=== PATIENT | male | born 1990 | race African-American/Black ===

== ENCOUNTER 2018-10-07 14:59 | Emergency (ER) | payer MEDICAID ==
[~2018-10-07] VITALS: Ht 195.6 cm; Wt 95.0 kg
[2018-10-07 15:29] VITALS: BP 122/67
== END 2018-10-07 16:17 | disposition home or self-care (01) ==
LOC: ER 14:59
DX: Z48.02 Encounter for removal of sutures (principal)
CPT/HCPCS: 99281

== ENCOUNTER 2018-10-15 09:12 | Emergency (ER) | payer MEDICAID ==
[~2018-10-15] VITALS: Ht 195.6 cm; Wt 98.0 kg
[2018-10-15] MEDS ORDERED: ONDANSETRON HCL 4MG/2ML INJ IV STA (10:22)
[2018-10-15] MEDS ORDERED: SODIUM CHLORIDE 0.9% 1,000 ML IV ONE (10:22)
[2018-10-15 11:05] LABS: BASOPHILS % 0.3 % (0.0-2.0); EOSINOPHILS % 0.3 % (0.0-5.0); HEMATOCRIT. 39.4 % (42.0-52.0); HEMOGLOBIN. 13.4 g/dL (14.0-18.0); LYMPHOCYTES % 11.7 % (20.0-50.0); MEAN CORPUSCULAR HEMOGLOBIN 33.3 pg (28.0-32.0); MEAN CORPUSCULAR VOLUME 97.6 fL (80.0-94.0); MEAN PLATELET VOLUME 8.1 fl (7.4-10.4); MONOCYTES % 7.4 % (2.0-8.0); NEUTROPHILS % 80.3 % (40.0-76.0); PLATELET 209 x1000/uL (130-400); RED BLOOD CELL COUNT 4.03 mill/uL (4.7-6.1); RED CELL DISTRIBUTION WIDTH 13.1 % (11.6-14.6)
[2018-10-15 11:09] LABS: CHLORIDE 112 mEq/L (98-107)
[2018-10-15] MEDS ORDERED: POTASSIUM CHLORIDE IV SCH (12:30)
[2018-10-15] MEDS ORDERED: [UNRECOGNIZED DRUG - OTHER] IV SCH (12:30)
[2018-10-15] MEDS ORDERED: SODIUM BICARBONATE IV SCH (12:30)
[2018-10-15] MEDS ORDERED: IBUPROFEN 400MG TABLET PO ONE (15:45)
[2018-10-15 15:56] LABS: CLARITY URINE CLEAR (CLEAR); COLOR URINE YELLOW (YELLOW); KETONES URINE 3+ (NEGATIVE); LEUKOCYTE ESTERASE URINE NEGATIVE (NEGATIVE); NITRITE URINE NEGATIVE (NEGATIVE); OCCULT BLOOD URINE NEGATIVE (NEGATIVE); PROTEIN URINE 2+ (NEGATIVE); SPECIFIC GRAVITY URINE 1.039 (1.005-1.030); UROBILINOGEN URINE 0.2 E.U./dL (0.2-1.0)
[2018-10-15 16:55] VITALS: BP 115/64
[2018-10-15 17:22] LABS: CHLORIDE 113 mEq/L (98-107)
== END 2018-10-15 17:10 | disposition left against medical advice (07) ==
LOC: ER 09:22 → CANBEDREQ 16:43 → ER 17:10
DX: R11.2 Nausea with vomiting, unspecified (principal); T39.015A Adverse effect of aspirin, initial encounter; R19.7 Diarrhea, unspecified; R07.9 Chest pain, unspecified; F17.290 Nicotine dependence, other tobacco product, uncomplicated; Y92.89 Other specified places as the place of occurrence of the external cause
CPT/HCPCS: 36415; 80048; 80053; 80307; 80329; 81003; 83690; 85025; 93005; 96365; 96375; 99284; 99406; J2405; J3480; J3490; J7030